=== PATIENT | female | born 1955 | race Caucasian/White ===

== ENCOUNTER 2017-05-18 08:22 | Day surgery (SDC) | payer BC, OTHER ==
[2017-05-18] MEDS: LR 1,000 ML IV (11:50)
[2017-05-18] MEDS ORDERED: MIDAZOLAM INJ 2 MG/2 ML VIAL (J2250) As Ordered (14:18)
[2017-05-18] MEDS ORDERED: LIDOCAINE 2% INJ 100 MG/5 ML SDV (FOR ANES.) As Ordered (14:18)
[2017-05-18] MEDS ORDERED: ONDANSETRON 4MG/2ML VIAL (J2405) As Ordered (14:18)
[2017-05-18] MEDS ORDERED: KETOROLAC 60 MG/2 ML VIAL (J1885) As Ordered (14:18)
[2017-05-18] MEDS ORDERED: PROPOFOL 200 MG/20 ML VIAL As Ordered (14:18)
[2017-05-18] MEDS ORDERED: dexameTHASONE 4 MG/ML 1ML VIAL (J1100) As Ordered ×2 (14:18→15:29)
[2017-05-18] MEDS ORDERED: fentaNYL 100 MCG/2 ML INJECTION (J3010) As Ordered (14:19)
[2017-05-18] MEDS ORDERED: LR 1,000 ML IV (16:00)
[2017-05-18] MEDS ORDERED: IBUPROFEN 600 MG TAB PO ×2 (16:00→20:00)
[2017-05-18] MEDS ORDERED: fentaNYL 100 MCG/2 ML INJECTION (J3010) IV (16:00)
[2017-05-18] MEDS ORDERED: ONDANSETRON 4MG/2ML VIAL (J2405) IV (16:00)
[2017-05-18] MEDS: PERCOCET 5MG/325MG TAB PO (16:02)
== END 2017-05-18 17:08 | disposition home or self-care (01) ==
LOC: M SDC 08:22
DX: N95.0 Postmenopausal bleeding (principal); N84.0 Polyp of corpus uteri; K21.9 Gastro-esophageal reflux disease without esophagitis; J30.9 Allergic rhinitis, unspecified; Z88.8 Allergy status to other drugs, medicaments and biological substances
CPT/HCPCS: 58558

== ENCOUNTER → 2021-03-30 | Outpatient (CLI) | payer BC, OTHER, MEDICARE ==
[~2021-03-30] MED LIST: OMEP1CAP73 PO
--- NOTE | 2021-03-30 15:21 | REPMRS ---
Patient History The patient states she had a clinical breast exam in early 2020. Patient is postmenopausal and has history of endometrial cancer at age 61. No Hormone Replacement Therapy Patient states no breast complaints today. Patient has signed MRS History Sheet. Digital Woman Screen Mammo: March 30, 2021 - Exam #: [id number] Bilateral CC and MLO view(s) were taken. Technologist: Milagros Basilio, Back Shoe Operator Prior study comparison: January 02, 2020, bilateral screening 3D/tomosynthesis, performed at [facility]. January 03, 2019, bilateral screening 3D/tomosynthesis, performed at [facility]. FINDINGS: The breast tissue is almost entirely fat. Screening. Digital screening (2D) mammography was performed bilaterally in the CC and MLO projections. Additionally, breast tomosynthesis (3D mammography) was performed bilaterally in the CC and MLO projections. Todays exam was compared to the prior exam/exams. By history, the patient has no complaints of a palpable breast abnormality or other significant breast complaints. The Volpara volumetric breast density category is A, the breasts are almost entirely fatty. The breasts are unchanged in size and shape. There are no julio-soft tissue densities or spiculated masses. There is no internal architectural distortion. There are no suspicious julio-calcific clusters. Skin thickening or nipple retraction is not present. IMPRESSION: BI-RADS Category 2- Benign Findings. There is no evidence of malignant alteration of the breasts. Followup examination recommended in one year. The lifetime Tyrer-Cuzick score is 5.9% This mammogram was read with the assistance of [employer],an FDA approved computer aided detection system for mammography. Negative x-ray reports should not delay surgical consultation if a dominant or clinically suspicious mass is present. Not all breast cancers can be identified by mammography. Therefore, we recommend that you continue to perform regular breast self-examination and physical examination and then promptly contact your physician of any concerns or changes. Adenosis and dense breasts may obscure an underlying neoplasm. No significant changes when compared with prior studies. Assessment: BI-RADS/ACR category 2 mammogram. Benign Findings. Recommendation Routine screening mammogram of both breasts in 1 year. Electronically Signed By: Yakov Rubalcava MD 03/30/21 [id number]
--- NOTE | 2021-04-05 14:49 | DEXAMM ---
INDICATION: DISORDER OF BONE DENSITY AND STRUCTURE. COMPARISON: 12/29/2016, 09/07/2007. TECHNIQUE: Bone density was measured using dual-energy x-ray absorptiometry (DEXA). FINDINGS: AP SPINE L1-L4 BMD 0.947 g/cm2 Young Adult T-Score -1.9 Age Matched Z-Score -0.4. LT radius, TOTAL BMD 0.806 g/cm2 Young Adult T-Score 2.0 Age Matched Z-Score 3.4. LT radius 33% BMD 0.937 g/cm2 Young Adult T-Score 0.6 Age Matched Z-Score 1.9. IMPRESSION: There is low bone density of the spine. There is normal bone density of the left radius. The density of the spine has decreased 19.2% since the initial exam on 09/07/2007. The density of the spine decreased 6.1% since most recent exam on 12/29/2016. The density of the left radius has decreased 3.7% since initial exam on 12/29/2016. FOLLOW-UP: Recommendation for the next bone density exam: 2 years. <Electronically signed by Omar Gottlieb > 04/05/21 [id number]
== END ==
LOC: M WHC 12:12
PROVIDERS: ATTEND Internal Medicine
DX: Z12.31 Encounter for screening mammogram for malignant neoplasm of breast (principal); M85.88 Other specified disorders of bone density and structure, other site

== ENCOUNTER → 2021-07-01 | Outpatient (CLI) | payer MEDICARE, BC, OTHER | LOC: M RAD 14:54 | PROVIDERS: ATTEND Internal Medicine | DX: Z86.73 Personal history of transient ischemic attack (TIA), and cerebral infarction without residual deficits (principal) ==

== ENCOUNTER → 2021-07-21 | Outpatient (CLI) | payer MEDICARE, BC, OTHER | LOC: M RAD 16:02 | PROVIDERS: ATTEND Internal Medicine | DX: E04.1 Nontoxic single thyroid nodule (principal) ==

== ENCOUNTER → 2022-01-13 | Outpatient (REF) | payer MEDICARE, OTHER | LOC: M PLALAB 13:07 | PROVIDERS: ATTEND Nurse Practitioner Family | DX: Z12.4 Encounter for screening for malignant neoplasm of cervix (principal) | CPT/HCPCS: 87624; G0123 ==

== ENCOUNTER → 2022-02-03 | Outpatient (REF) | payer MEDICARE, OTHER | LOC: M PLALAB 09:26 | PROVIDERS: ATTEND Nurse Practitioner Family | DX: Z12.4 Encounter for screening for malignant neoplasm of cervix (principal); R87.615 Unsatisfactory cytologic smear of cervix | CPT/HCPCS: 87624; G0123 ==

== ENCOUNTER → 2022-03-31 | Outpatient (CLI) | payer MEDICARE, BC, OTHER | LOC: M WHC 09:07 | PROVIDERS: ATTEND Internal Medicine | DX: Z12.31 Encounter for screening mammogram for malignant neoplasm of breast (principal) ==

== ENCOUNTER → 2022-08-05 | Outpatient (CLI) | payer MEDICARE, BC, OTHER | LOC: M WHC 14:41 | PROVIDERS: ATTEND Internal Medicine | DX: E07.89 Other specified disorders of thyroid (principal) ==

== ENCOUNTER → 2023-04-03 | Outpatient (CLI) | payer MEDICARE, BC, OTHER | LOC: M WHC 08:31 | PROVIDERS: ATTEND Internal Medicine | DX: Z12.31 Encounter for screening mammogram for malignant neoplasm of breast (principal) ==

== ENCOUNTER → 2023-04-14 | Outpatient (CLI) | payer MEDICARE, BC, OTHER | LOC: M WHC 08:54 | PROVIDERS: ATTEND Internal Medicine | DX: M85.80 Other specified disorders of bone density and structure, unspecified site (principal); M81.0 Age-related osteoporosis without current pathological fracture ==

== ENCOUNTER → 2023-07-27 | Outpatient (REF) | payer MEDICARE, OTHER | LOC: M PLALAB 09:54 | PROVIDERS: ATTEND Obstetrics & Gynecology | DX: Z12.72 Encounter for screening for malignant neoplasm of vagina (principal) | CPT/HCPCS: 87624; G0123 ==

== ENCOUNTER → 2024-03-08 | Outpatient (CLI) | payer MEDICARE, BC | LOC: M WHC 10:27 | PROVIDERS: ATTEND Internal Medicine | DX: E04.1 Nontoxic single thyroid nodule (principal); E07.89 Other specified disorders of thyroid ==

== ENCOUNTER → 2024-03-26 | Outpatient (CLI) | payer MEDICARE, BC | LOC: M PLAIMG 14:29 | PROVIDERS: ATTEND Orthopaedic Surgery | DX: M54.2 Cervicalgia (principal); M47.892 Other spondylosis, cervical region ==

== ENCOUNTER → 2024-04-04 | Outpatient (CLI) | payer MEDICARE, BC | LOC: M WHC 09:47 | PROVIDERS: ATTEND Internal Medicine | DX: Z12.31 Encounter for screening mammogram for malignant neoplasm of breast (principal) ==

== ENCOUNTER → 2024-07-04 | Outpatient (REF) | payer MEDICARE, BC ==
[2024-07-04 17:41] LABS: URIC ACID 3.4 MG/DL (3.1-7.8)
[2024-07-04 17:44] LABS: C REACTIVE PROTEIN QUANTITATIV 2.49 MG/DL (<1.0); RHEUMATOID FACTOR QUANT < 3.5 IU/ML (<14)
== END ==
LOC: M LAB REF 16:27
PROVIDERS: ATTEND Internal Medicine
DX: M25.562 Pain in left knee (principal)

== ENCOUNTER → 2025-04-15 | Outpatient (CLI) | payer MEDICARE, BC | LOC: M WHC 09:32 | PROVIDERS: ATTEND Internal Medicine | DX: Z12.31 Encounter for screening mammogram for malignant neoplasm of breast (principal); M81.0 Age-related osteoporosis without current pathological fracture ==